=== PATIENT | female | born 1955 | race Hispanic/Latino ===

== ENCOUNTER 2021-10-25 13:49 | Emergency (ER) | payer SELFPAY ==
[~2021-10-25] VITALS: Ht 152.4 cm; Wt 74.8 kg
[2021-10-25] MEDS ORDERED: NAPROSYN500 MG PO (15:08)
[2021-10-25] MEDS ORDERED: KETOROLAC TROMETHAMINE 10 MG TAB PO SCH (15:15)
[2021-10-25] MEDS ORDERED: IBUPROFEN 400 MG TAB PO ONE (15:30)
[2021-10-25] MEDS ORDERED: IBUPROFEN 400 MG TAB ONE (15:42)
== END 2021-10-25 15:35 | disposition home or self-care (01) ==
LOC: FSED 13:52
DX: S43.491A Other sprain of right shoulder joint, initial encounter (principal); S40.011A Contusion of right shoulder, initial encounter; W06.XXXA Fall from bed, initial encounter; Y93.84 Activity, sleeping; Y92.003 Bedroom of unspecified non-institutional (private) residence as the place of occurrence of the external cause; I10 Essential (primary) hypertension; E11.9 Type 2 diabetes mellitus without complications; E78.5 Hyperlipidemia, unspecified; I50.9 Heart failure, unspecified; I25.2 Old myocardial infarction; Z95.5 Presence of coronary angioplasty implant and graft
CPT/HCPCS: 99283